=== PATIENT | male | born 1960 | race Caucasian/White ===

== ENCOUNTER 2025-03-20 06:36 | Day surgery (SDC) | payer OTHER ==
[~2025-03-20] VITALS: Ht 165.1 cm; Wt 87.3 kg
[~2025-03-20 06:36] MED LIST: SODIUM CHLORIDE 0.9% 1,000 ML ONE
[2025-03-20] MEDS ORDERED: ALBUTEROL SULFATE 2.5 MG/0.5 ML NEB SOLUTION NEB ONE (06:37)
[2025-03-20] MEDS ORDERED: LIDOCAINE 2% 11 ML JELLY TP ONE (06:37)
[2025-03-20] MEDS ORDERED: BENZOCAINE 20% 50 MCG/SPRAY 57 GM TP ONE (06:37)
[2025-03-20] MEDS ORDERED: RIVA10TA PO (06:51)
[2025-03-20] MEDS ORDERED: METF-1211 PO (06:51)
[2025-03-20] MEDS ORDERED: LOSA100T59 PO (06:51)
[2025-03-20] MEDS ORDERED: SIMV-43 PO (06:51)
[2025-03-20] MEDS ORDERED: ALLO-97 PO (06:51)
[2025-03-20] MEDS: SODIUM CHLORIDE 0.9% 1,000 ML IV ONE (07:30)
[2025-03-20] MEDS ORDERED: MONT-40 PO (08:02)
[2025-03-20] MEDS ORDERED: FAMO20 PO (08:02)
[2025-03-20] MEDS ORDERED: FentaNYL CITRATE PF 100 MCG/2 ML VIAL ONE (08:05)
[2025-03-20] MEDS ORDERED: MIDAZOLAM HCL 2 MG/2 ML VIAL ONE (08:05)
[2025-03-20 10:00] VITALS: PULSE 67; RESP 16; O2SAT 100
== END 2025-03-20 13:25 | disposition home or self-care (01) ==
LOC: SDS 06:36
PROVIDERS: ATTEND Internal Medicine Critical Care Medicine
DX: R05.3 Chronic cough (principal); R04.2 Hemoptysis; J38.4 Edema of larynx; B37.0 Candidal stomatitis; E78.00 Pure hypercholesterolemia, unspecified; M10.9 Gout, unspecified; G47.30 Sleep apnea, unspecified; I10 Essential (primary) hypertension; Z72.89 Other problems related to lifestyle; Z79.899 Other long term (current) drug therapy
CPT/HCPCS: 31623; 87206; 87101; 87220; 87070; 31624; 94640; 71045; 87015; J3010; J2250; J2919; J7030; J7613